=== PATIENT | female | born 1945 | race African-American/Black ===

== ENCOUNTER 2017-01-10 15:00 | Emergency (ER) | payer OTHER ==
[2017-01-10 15:11] VITALS: BP 224/87
[2017-01-10] MEDS ORDERED: ZOFRAN ODT PO ONE (16:27)
[2017-01-10] MEDS ORDERED: NORCO-5 PO ONE (16:27)
--- NOTE | 2017-01-10 16:31 | PROVIDER DOCUMENTATION ---
HPI-Musculoskeletal Pain/Inj - GENERAL Chief Complaint: Fall Stated Complaint: FALL Time Seen by Provider: 01/10/17 15:34 Source: patient - HX OF PRESENT ILLNESS-MUSKULOSKELTAL Nature of Presenting Problem: This pt presents today c complaints of bilateral knee pain after tripping and landing hard on her knees while at [employer]. No loss of motor function or sensation. no obvious injury. Pt is ambulating. No other injuries or complaints. Quality of Pain: reports: aching Severity in ED: mild Onset/Duration: 1-3 hours ago Timing: still present Modifying Factors: improves with: palpation Any recent injury?: Yes Similar Symptoms Previously?: No Recently seen or treated by another doctor?: No Review of Systems - Adult - REVIEW OF SYSTEMS - ADULT Constitutional: reports: no symptoms reported. denies: chills, fever Eyes: reports: no symptoms reported. denies: discharge, dry eyes Ears, Nose, Mouth & Throat: reports: no symptoms reported. denies: ear discharge, ear pain Cardiovascular: reports: no symptoms reported. denies: chest pain, edema Respiratory: reports: no symptoms reported. denies: chronic cough, cough Gastrointestinal: reports: no symptoms reported. denies: abdominal pain, hematemesis Genitourinary: reports: no symptoms reported. denies: dysuria, discharge Musculoskeletal: reports: joint pain. denies: bone pain, back pain, joint swelling, muscle aches Integumentary: reports: no symptoms reported. denies: hives, hair loss Neurological: reports: no symptoms reported. denies: ataxia, dizziness/vertigo Psychiatric: reports: no symptoms reported. denies: anxiety, anti-depressant use Endocrine: reports: no symptoms reported Hematologic/Lymphatic: reports: no symptoms reported Allergic/Immunologic: reports: no symptoms reported All Other Systems: Reviewed and Negative Past History - Adult - PAST MEDICAL HISTORY-ADULT Review of Records: reports: Old Records Reviewed, Nursing Assessment Review, Medications Reviewed, Social history reviewed & non-contributory. Major Childhood Illnesses: reports: denies history Cardiovascular: reports: CAD, CHF, HTN, hyperlipidemia, SD (2007,2012) Respiratory: reports: denies history Gastrointestinal: reports: denies history Obstetrical/Gynecological: reports: other (herpes) Genitourinary: reports: denies history Musculoskeletal: reports: denies history Neurological: reports: denies history Endocrine/Immune: reports: denies history Other Conditions: reports: denies history - PRIOR SURGERIES/PROCEDURES Surgical/Procedure History: reports: hysterectomy, other (left breast surgery) - FAMILY HISTORY Family History: reviewed, not pertinent Physical Exam-Injury Related - Physical Exam-Injury Related Initial Vital Signs Reviewed: Yes General Appearance: appears well, alert, no apparent distress Eyes: PERRL/EOMI, pink conjunctivae Head, Ears, Nose, Mouth & Throat: normocephalic/atraumatic, moist mucous membranes, normal ENT inspection Neck: non-tender, full range of motion, supple Respiratory: chest non-tender, lungs clear, normal breath sounds Cardiovascular: normal peripheral pulses, regular rate, rhythm Peripheral Pulses: dorsalis-pedis (R): 2+, dorsalis-pedis (L): 2+ Abdominal Exam: normal bowel sounds, non tender Back Exam: normal inspection Extremity: normal range of motion, normal gait, normal inspection, tenderness ( bilateral knees). negative: deformity, erythema, inflammation, pulse deficit, pedal edema Integumentary: normal color, warm/dry, blanching. negative: abrasion, contusion (s) Neurologic: grossly normal, no motor/sensory deficits Psych/Mental Status: normal mood/affect, normal thought content, normal thought process, oriented x 3 Progress - PLAN OF CARE/RESULTS Progress/Plan/Lab Results: Orders Category Date Time Status KNEE 3 VIEWS LEFT [RAD] Stat Exams 01/10/17 15:13 Taken KNEE 3 VIEWS RIGHT [RAD] Stat Exams 01/10/17 15:13 Taken Hydrocodone/APAP 5 mg/325 mg [[place]-5] Med 01/10/17 16:27 Discontinued 1 each PO NOW ONE Ondansetron Odt [Zofran Odt] Med 01/10/17 16:27 Discontinued 4 mg PO NOW ONE Vital Signs Temp Pulse Resp BP Pulse Ox 01/10/17 15:05 98.0 F 70 18 224/87 98 No Known Allergies Allergy (Verified 12/07/14 17:58) Amlodipine Besylate/Benazepril [Amlodipine-Benazepril 10-20 mg] 1 each PO DAILY 03/05/14 Brimonidine 0.1% Ophth Soln [Alphagan P 0.1% Ophth Soln] 1 drop BOTH EYES Q8HR 03/05/14 Furosemide 20 mg PO DAILY 03/05/14 Potassium Chloride [Klor-Con 10] 10 meq PO DAILY 03/05/14 Timolol [Betimol] 1 each BOTH EYES BID 03/05/14 Travoprost 0.004% Oph Soln [Travatan 0.004% Oph Soln] 1 drop OP HS 03/05/14 Triamterene/Hydrochlorothiazid [Triamterene-Hctz 37.5-25 mg Cp] 37 mg PO DAILY 03/05/14 Clindamycin HCl 300 mg PO Q6HR #28 capsule 12/07/14 Hydrocodone/APAP 5 mg/325 mg [[place]-5] 1 - 2 tab PO Q6H PRN PRN #20 tablet 12/07 Sulfamethoxazole/Trimethoprim [Bactrim Ds Tablet] 2 each PO BID #40 tablet 12/07 - XRAY 1 XRAY: Bilateral XRAY Study: Knee Impression: Normal Departure - Departure Time of Disposition Order: 16:30 DIAGNOSIS: Knee injury Qualifiers: Encounter type: initial encounter Laterality: unspecified laterality Qualified Code(s): S89.90XA - Unspecified injury of unspecified lower leg, initial encounter Disposition: HOME 01 Certified Medical Emergency: Urgent Condition: Good Additional Instructions: Take medication as prescribed. Rest, ice and elevate knee. Follow up with an orthopedist as needed. ED Follow Up Instructions: You have been treated by a care provider in the Emergency Department. These instructions are being provided to you so you can have an understanding of how to care for yourself upon discharge. Upon discharge from the Emergency Department, you are responsible for making arrangements for follow-up care by a physician of your choice. Take all prescribed medications as directed. Return to the Emergency Department immediately for any new or worsening symptoms. You may call the Physician Referral phone number at [phone] to obtain a list of Physicians who are taking new patients. Prescriptions: Cyclobenzaprine [Flexeril] 10 mg PO TID #20 tablet Meloxicam [Mobic] 7.5 mg PO DAILY PRN PRN #15 tablet PRN Reason: Pain Referrals: Trevor Suarez MD [Primary Care Provider] - Perry Mccall MD [STAFF PHYSICIAN] - Attestation - Physician/ BERNARDA Attestation Patient care was provided by Advanced Practice Provider:: Yes Advanced Practice Provider:: Gideon Higgins Advanced Practice Provider documentation review:: The Mid-level provider documentation, treatment plan and medical decision making was reviewed by the physician who agrees with all treatment and medical decision making by the MLP.
--- NOTE | 2017-01-10 17:41 | Diag Imaging Result Document ---
PROCEDURE NAME: KNEE 3 VIEWS LEFT - 01/10/2017 LEFT KNEE, 3 VIEWS: FINDINGS: There is medial joint space narrowing. There is bone spurring of the medial femoral condyle and tibial plateau. There is also patella bone spurring with patellofemoral joint space narrowing. No fracture. No dislocation. IMPRESSION: 1. No acute bony injury. 2. Prominent arthritic changes.
--- NOTE | 2017-01-10 17:49 | Diag Imaging Result Document ---
PROCEDURE NAME: KNEE 3 VIEWS RIGHT - 01/10/2017 RIGHT KNEE, 3 VIEWS: FINDINGS: There is marked medial joint space narrowing. There is also patellofemoral joint space narrowing with patella bone spurs. There is bone spurring of the femoral condyles and tibial plateau. No fracture. No dislocation. IMPRESSION: No acute bony injury.
== END 2017-01-10 16:59 | disposition home or self-care (01) ==
LOC: ED 15:00
DX: S89.90XA Unspecified injury of unspecified lower leg, initial encounter (principal); M25.562 Pain in left knee; M25.561 Pain in right knee; I25.10 Atherosclerotic heart disease of native coronary artery without angina pectoris; I10 Essential (primary) hypertension; E78.5 Hyperlipidemia, unspecified; I25.2 Old myocardial infarction; Z79.899 Other long term (current) drug therapy; W01.0XXA Fall on same level from slipping, tripping and stumbling without subsequent striking against object, initial encounter
CPT/HCPCS: 99283